=== PATIENT | female | born 1955 | race Caucasian/White ===

== ENCOUNTER → 2021-08-08 | Outpatient (CLI) | payer OTHER, SELFPAY ==
--- NOTE | 2021-08-08 12:41 | MRI_ITS ---
STUDY: MRI BRAIN WITH AND WITHOUT CONTRAST (ATTENTION INTERNAL AUDITORY CANALS - I.A.C.''s) REASON FOR EXAM: Female, 65 years old. RIGHT TINNITUS; RIGHT ASYMMETRIC HEARING LOSS TECHNIQUE: Standardized multiplanar fat and water weighted pulse sequences were obtained. 13ML IV DOTAREM was administered for the contrast portion of the examination. COMPARISON: None. FINDINGS: Normal bilateral temporal bones. Normal bilateral internal auditory canals. There is no demonstrated intracanalicular or cisternal vestibular schwannoma (acoustic neuroma). There is no enhancement of the bilateral VIIth or VIIIth cranial nerves. Normal bilateral cochlea, vestibules and semicircular canals. Normal size of the ventricles and extra-axial spaces for the patient''s age. Extensive confluent areas of T2 prolongation visualized in the periventricular and subcortical white matter more than would be expected for the patient''s age. Normal bilateral basal ganglia. Normal thalami. Normal flow voids within the major intracranial circulation suggesting patency by spin echo criteria. Normal venous enhancement. There is no enhancing intra-axial or extra-axial abnormality. There is no extra-axial fluid accumulation. Normal sella turcica, pituitary gland, infundibular stalk, optic chiasm and hypothalamus. Normal tectal plate and pineal gland. Normal midbrain, michelet and medulla. Normal cerebellum. Normal basal cisterns. No demonstrated orbital abnormality, within the constraints of a routine brain study. Normal visualized paranasal sinuses. Normal calvarium and skull base. Normal visualized soft tissue structures. Normal visualized upper cervical spine. MRI/Brain W/WO Contrast IMPRESSION: Extensive confluent areas of T2 prolongation visualized in the supratentorial white matter, differential diagnosis would include arteriolosclerosis, would recommend clinical correlation. No evidence of temporal bone lesion is seen. Electronically Signed: Mario Michele MD at 16:52 EDT ,
[2021-08-08 13:01] LABS: CREATININE FINGERSTICK 0.6 mg/dL (0.55-1.02); EGFR FINGERSTICK > 60.0000 mL/min (>60)
== END | disposition home or self-care (01) ==
PROVIDERS: PCP Family Medicine; Referring Provider Otolaryngology; Visit Provider Otolaryngology
DX: H93.11 Tinnitus, right ear (principal); H90.3 Sensorineural hearing loss, bilateral
CPT/HCPCS: 70553; A9575

== ENCOUNTER → 2022-04-02 | Outpatient (CLI) | payer OTHER, SELFPAY ==
--- NOTE | 2022-04-02 | FLU_PTH ---
PATIENT: SHASHI MORALES LOC: [facility] U#:[id number] AGE/SX: 66/F ROOM: RE04/02/[address]: Dr. Joe Barbosa MD : 1955 BED: DIS: 04/02/2022 SPEC #: [id number] RECD: 04/02/22 11:53 STATUS: SHAHLA REEdison #: [id number] LORNA: 04/02/22 00:[address]: Joe Barbosa DEPT: CYTOLOGY RECD BY: Reina Mcclain ENTERED: 04/02/22 13:37 SP TYPE: Fluid OTHR DR: Dr. Elise Bautista, DO Tissues: A - Thyroid gland, NOS B - Thyroid gland, NOS C - Thyroid gland, NOS D - Thyroid gland, NOS Procedures: Special Stain Group II Surgery Specimen Level IV Cytospin Fluid Cytology Other HEADER OPERATION: Fine needle aspiration left and right thyroid PRE-OP DIAGNOSIS: Abnormal thyroid ultrasound TISSUE SUBMITTED: A ? FNA right thyroid fluid, B - FNA right thyroid x12 slides, C - FNA left thyroid fluid, D - FNA left thyroid x12 slides DIAGNOSIS CYTOLOGY A. Fine needle aspiration, right thyroid nodule (cytospin and cell block): Macrophages consistent with benign cyst contents. B. Fine needle aspiration, right thyroid nodule (smears): Benign, consistent with benign follicular nodule with cystic change (Marshall Category II). See comment. C. Fine needle aspiration, left thyroid nodule (cytospin and cell block): Negative for malignant cells. See comment. D. Fine needle aspiration, left thyroid nodule (smears): Benign, consistent with benign follicular nodule (Marshall Category II). See comment. AM:yamel 04/03/2022 COMMENT B. The specimen is adequate for evaluation. The Marshall System for thyroid diagnostic categorization was used in the evaluation of this case. C. The specimen primarily contains blood. D. The specimen is adequate for evaluation. The Marshall System for thyroid diagnostic categorization was used in the evaluation of this case. CYTOLOGY STUDY Slides are reviewed. CYTOLOGY GROSS A - Received is 30 ml of dark brown cloudy fluid labeled with the patient's name and and designated per the requisition as right thyroid. Submitted for cytology preparation including cell block. B - Received are 12 smears labeled with the patient's name and designated per the requisition as right thyroid. Submitted for staining. C - Received is 30 ml of brown cloudy fluid labeled with the patient's name and and designated per the requisition as left thyroid. Submitted for cytology preparation including cell block. D - Received are 12 smears labeled with the patient's name and designated per the requisition as left thyroid. Submitted for staining. / yamel 04/02/2022 TC:5 CPT: 68747 x4, 90041 x2
== END | disposition home or self-care (01) ==
LOC: LABSPEC 12:13
PROVIDERS: PCP Family Medicine; Visit Provider Surgery
DX: E04.1 Nontoxic single thyroid nodule (principal)
CPT/HCPCS: 88108; 88161; 88305; 88313

== ENCOUNTER → 2023-02-03 | Outpatient (CLI) | payer MEDICARE, SELFPAY ==
--- NOTE | 2023-02-03 11:25 | RAD_ITS ---
STUDY: X-RAY CHEST REASON FOR EXAM: Female, 67 years old. History lung cancer. Cough. TECHNIQUE: Frontal and lateral views of the chest. COMPARISON: None. FINDINGS: Hyperinflation. Borderline cardiomegaly with aortic tortuosity and calcification. Diffuse mild thoracic spondylosis. No abnormality of the visualized soft tissue structures of the upper abdomen. RAD/Chest PA and Lateral IMPRESSION: Borderline cardiomegaly with hyperinflation. No active or acute cardiopulmonary disease. Electronically Signed: Delonte Chambers MD at 11:39 EDT ,
== END | disposition home or self-care (01) ==
PROVIDERS: PCP Family Medicine; Visit Provider Otolaryngology
DX: R05.9 Cough, unspecified (principal); Z85.118 Personal history of other malignant neoplasm of bronchus and lung
CPT/HCPCS: 71046

== ENCOUNTER → 2023-02-27 | Outpatient (CLI) | payer MEDICARE, SELFPAY ==
--- NOTE | 2023-02-27 12:23 | EKG12_ITS ---
Test Reason : PRE-OP Blood Pressure : / mmHG Vent. Rate : 117 BPM Atrial Rate : 117 BPM P-R Int : 146 ms QRS Dur : 092 ms QT Int : 354 ms P-R-T Axes : 085 069 041 degrees QTc Int : 493 ms Sinus tachycardia Otherwise normal ECG Confirmed by LOCO SAAVEDRA, JEANNE ([id number]), continuity editor KIRAN FORBES ([id number]) on 03/02/2023 8:23:30 AM Referred By: Scott Hunter Confirmed By:CONNIE ADAN MD
[2023-02-27 13:05] LABS: Hematocrit 41.3 % (37-47); Hemoglobin 14.2 g/dL (12.0-15.0); Mean Corp Hgb Conc 34.4 g/dL (32-36); Mean Corpuscular Hgb 29.7 pg (27.0-32.0); Mean Corpuscular Volume 86.4 fL (81-99); Mean Platelet Vol. 9.5 fl (6.2-12.0); Platelet Count 243 K/mm3 (150-450); RBC Distribution Width CV 14.3 % (11.6-14.6); RBC Distribution Width SD 45.7 fl (35.1-43.9); Red Blood Count 4.78 M/mm3 (4.2-5.4); White Blood Count 9.5 K/mm3 (4.4-11.0)
[2023-02-27 13:25] LABS: Anion Gap 5 (5-15); BUN 12 mg/dL (7-18); BUN/Creat Ratio 19.4 RATIO (10-20); Chloride 102 mmol/L (98-107); Creatinine, Serum 0.62 mg/dL (0.55-1.02); EST Glomerular Filtration Rate 102 mL/min (>60); Est Glom Filt Rate - Afr Amer 124 mL/min (>60); Glucose 102 mg/dL (74-106); Potassium 2.9 mmol/L (3.5-5.1); Sodium Level 134 mmol/L (136-145)
== END | disposition home or self-care (01) ==
LOC: PSN 12:21
PROVIDERS: PCP Family Medicine; Referring Provider Otolaryngology; Visit Provider Otolaryngology
DX: Z01.818 Encounter for other preprocedural examination (principal)
CPT/HCPCS: 36415; 80048; 85027; 93005

== ENCOUNTER → 2023-03-02 | Outpatient (CLI) | payer MEDICARE, SELFPAY ==
[2023-03-02 09:13] LABS: Potassium 3.2 mmol/L (3.5-5.1)
== END | disposition home or self-care (01) ==
LOC: LAB 08:52
PROVIDERS: PCP Family Medicine; Referring Provider Otolaryngology; Visit Provider Otolaryngology
DX: Z01.818 Encounter for other preprocedural examination (principal)
CPT/HCPCS: 36415; 84132

== ENCOUNTER → 2023-03-03 | Outpatient (CLI) | payer MEDICARE, SELFPAY ==
--- NOTE | 2023-03-03 | IMM_PTH ---
PATIENT: SHASHI MORALES LOC: [facility] U#:[id number] AGE/SX: 67/F ROOM: RE03/03/[address]: Dr. Scott Hunter MD : 1955 BED: DIS: 03/03/2023 SPEC #: [id number] RECD: 03/05/23 14:51 STATUS: SHAHLA REQ #: [id number] LORNA: 03/03/23 00:[address]: Scott Hunter DEPT: IMMUNOHISTOCHEMISTRY RECD BY: Cherry Casarez ENTERED: 03/05/23 14:53 SP TYPE: IMMUNO OTHR DR: Dr. Elise Bautista, DO Tissues: Supraglottic space Procedures: CK5-6 (add) CK7 (add) CK8 (add) KI-67 (add) P16 (add) P53 (add) Pankeratin (initial) P40 (add) S-100 (add) PHYSICIAN & INSTITUTION [place] [phone] SPECIMEN INFORMATION: Tissue Source: Right supraglottic neoplasm Clinical Info: Malignant neoplasm of supraglottis Specimen Number: [id number] CPT code: 67663, 63130 x8 METHODOLOGY: Deparaffinized sections of prefer/formalin-fixed tissue or PAP/DQ stained slides are incubated with monoclonal/polyclonal antibodies/oligonucleotide probes. Localization is made via biotin free immunoperoxidase method. Appropriate controls are performed and reacted as expected. Results on target cell population are indicated in the following table: RESULTS: ANTIBODY / CLONE RESULT AE1-3 (AE1/AE3/PCK26) positive CK7 (OV-TL12/30) negative CK8 (17xpmzI89) negative S-100 (4C4.9) negative CK5-6 (D5 & 1684) positive P40 (BC28) positive P16 (E6H4) positive, patchy to block-like P53 (DO-7) positive, missense type pattern Ki-67 (30-9) positive, moderate These tests were developed and their performance characteristics determined by [facility]. They may not have been cleared or approved by the U.S. Food and Drug Administration. The FDA has determined that such clearance or approval is not necessary. The above immunohistochemical/dualISH markers are ordered and reviewed by the Pathologist. INTERPRETATION: Right supraglottic lesion, biopsy: Invasive squamous cell carcinoma. AM:yaeml 03/06/2023
--- NOTE | 2023-03-03 | MASS_PTH ---
PATIENT: SHASHI MORALES LOC: [facility] U#:[id number] AGE/SX: 67/F ROOM: RE03/03/[address]: Dr. Scott Hunter MD : 1955 BED: DIS: 03/03/2023 SPEC #: [id number] RECD: 03/04/23 08:23 STATUS: SHAHLA АЛЕКСАНДР #: [id number] LORNA: 03/03/23 00:[address]: Scott Hunter DEPT: SURGICAL PATHOLOGY RECD BY: Candi Hawkins ENTERED: 03/04/23 08:24 SP TYPE: Mass OTHR DR: Dr. 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 See comment. AM:yamel 03/05/2023 COMMENT Sections show extensive squamous cell carcinoma in situ with focal area of invasive poorly differentiated squamous cell carcinoma. Clinical correlation is suggested. Immunohistochemistry ([id number]) supports the above diagnosis. MICROSCOPIC DESCRIPTION Slides are reviewed. GROSS DESCRIPTION Received is one container labeled with the patient's name and not further designated. The specimen consists of two irregular fragments of nelson tissue that in aggregate measure 1.0 x 0.5 x 0.2 cm. The specimen is totally submitted in one cassette. / AM:yamel 03/04/2023 TC:0 CPT: 46188
== END | disposition home or self-care (01) ==
LOC: LABSPEC 15:33
PROVIDERS: PCP Family Medicine; Referring Provider Otolaryngology; Visit Provider Otolaryngology
DX: C32.1 Malignant neoplasm of supraglottis (principal)
CPT/HCPCS: 88305; 88341; 88342

== ENCOUNTER → 2023-03-17 | Outpatient (CLI) | payer MEDICARE, SELFPAY ==
--- NOTE | 2023-03-17 08:00 | PET_ITS ---
EXAMINATION: FDG PET-CT INDICATIONS: A 67-year-old female with a history of head and neck carcinoma presenting for initial staging examination. COMPARISON EXAMINATION: None available. INDEX LESION SIZE SUV INTERPRETATION Hypopharynx and laryngeal structures 28.4 mm 18.0 Fulfills quantitative criteria for viable neoplasm. Left and right lateral neck 6.7 mm largest 3.5 max Fulfills quantitative criteria for viable neoplasm. Bilateral hemithorax pulmonary parenchyma 2.2 max Quantitative criteria for viable neoplasm are not fulfilled. NON-INDEX LESION SIZE SUV INTERPRETATION Pelvic, structural device uterus 5.6 max Correlation with pelvic ultrasound may be of benefit. TECHNIQUE: Following the intravenous administration of 12.49 mCi of F-18 deoxyglucose via the left wrist, multiplanar image acquisitions of the head, neck, chest, abdomen and pelvis to level of mid-thigh, lower extremities obtained at one hour post radiopharmaceutical administration contemporaneously interpreted with the current CT of the head, neck, chest, abdomen and pelvis to level of mid-thigh, lower extremities dated 03/17/23 via coregistration reveal: SERUM GLUCOSE LEVEL: 94 mg/dl. HEIGHT: 63 inches. WEIGHT: 125 lbs. FINDINGS: Head/Neck: Increased radiopharmaceutical concentration is defined in the hypopharynx to the right of midline extending caudal to the laryngeal structures. The calculated maximum standard uptake value is 18.0. The maximum axial diameter of the metabolic, morphologic abnormality is 28.4 mm. Enhanced radiopharmaceutical concentration is defined in the left lateral neck involving level IIA and right lateral neck involving level III. Facilitated FDG uptake is noted in the bilateral-lateral neck involving level IIA on the left and III on the right. The calculated maximum standard uptake value is 3.5. The maximum axial diameter of the largest corresponding soft tissue density is 6.7 mm. The visualized portion of the cerebral cortical-subcortical structures demonstrate symmetric and preserved glucose metabolism. CHEST: Subtle hypermetabolic foci are defined in the bilateral hemithorax generating a calculated maximum standard uptake value of 2.2. Pertinent chest CT findings are as follows. There is atherosclerotic calcification defined in the thoracic aorta without evidence of dilatation-aneurysm formation. Coronary arterial calcification is observed. Scattered bilateral axillary soft tissue densities are nonglucose avid. Calcified and noncalcified mediastinal soft tissue reveals no evidence of increased tracer uptake. Abdomen/Pelvis: Normal physiologic distribution of the radiopharmaceutical is apparent in the hepatic (2.7) and splenic parenchyma, both renal units, bladder and visualized intestinal tract. Diffuse radiopharmaceutical concentration is noted in all four quadrants of the abdomen and pelvis. Abdomen and pelvis CT findings are as follows. The gallbladder is surgically absent. There is atherosclerotic calcification defined in the abdominal aorta without evidence of dilatation-aneurysm formation. Abdominal-pelvic arterial calcification is defined. Facilitated uptake is noted in the lower pelvis associated with the uterus and device placement. The calculated maximum standard uptake value is 5.6. Skeletal: Degenerative changes are noted in the cervical, thoracic and lumbar spine. PET/PET/CT Tumor Base -Thigh Init IMPRESSION: 1. ABNORMAL EXAMINATION INDICATIVE OF MALIGNANT-VIABLE NEOPLASM. 2. Increased radiopharmaceutical concentration defined in the hypopharynx, laryngeal structures fulfills quantitative criteria for viable neoplasm. 3. Enhanced tracer distribution noted in the bilateral-lateral neck fulfills quantitative criteria for malignant transformation. 4. Facilitated radiopharmaceutical manifest in the bilateral hemithorax pulmonary parenchyma do not fulfill quantitative criteria for malignant transformation. (Franchesca et al, Annals of Internal Medicine, 138:724, 2003) 5. Accentuated uptake noted in the lower pelvis associated with the uterus and structural device may be further investigated with pelvic ultrasound secondary to the quantitative degree of uptake. Electronic Signature Francisco Javier Strong D.O. Accurate Quantification of SUVs for this report are calculated using the exclusive [employer], (U.S. Patent No. [id number] [phone] patent [phone] ). Standardization and correction of the FDG SUV metric exclusively available with [employer] intellectual property, allow for vendor non-specific objective quantitative sequential FDG PET-CT comparison and otherwise unobtainable optimization of the sensitivity and specificity of the examination. [email or web address] Electronically Signed: Francisco Javier Strong DO at 23:47 EST ,
== END | disposition home or self-care (01) ==
LOC: ONC 08:20
PROVIDERS: PCP Family Medicine; Referring Provider Otolaryngology; Visit Provider Otolaryngology
DX: C32.1 Malignant neoplasm of supraglottis (principal); Z85.118 Personal history of other malignant neoplasm of bronchus and lung
CPT/HCPCS: 78815; A9552

== ENCOUNTER 2023-05-26 14:37 | Observation (INO) | payer MEDICARE, SELFPAY ==
[2023-05-26] VITALS (9 sets, daily range): BP systolic 118–130; BP diastolic 53–71; PULSE 95–111; RESP 13–23; TEMP 36.6–37; O2SAT 94–97; BMI 20.2; BMI 19.3
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
--- NOTE | 2023-05-26 15:35 | RAD_ITS ---
STUDY: X-RAY CHEST REASON FOR EXAM: Female, 67 years old. Altered mental status TECHNIQUE: Single AP portable view of the chest. COMPARISON: Comparison is made with prior study dated February 03, 2023. FINDINGS: EKG electrodes are seen. Consolidation in the posterior medial segment of the left lower lobe. Elevation of the left hemidiaphragm. Normal size heart. Normal mediastinum and brad. Normal visualized pulmonary arteries. Normal visualized aortic arch and descending thoracic aorta. Normal visualized thoracic spine. Normal visualized ribs, clavicles, and shoulders. There is no demonstrated abnormality of the visualized soft tissue structures of the upper abdomen. RAD/Chest 1 View (Portable) IMPRESSION: Consolidation in the posterior medial segment of the left lower lobe with elevation of the left hemidiaphragm. Electronically Signed: Gideon Greenwood MD at 15:48 EST ,
--- NOTE | 2023-05-26 15:48 | CT_ITS ---
EXAMINATION : Head CT w/out contrast HISTORY : altered mental status COMPARISON : None. TECHNIQUE : Multiple contiguous axial images were obtained from the skull base to the vertex without intravenous contrast. A radiation dose optimization technique was used for this scan. FINDINGS : There is no evidence for acute intracranial hemorrhage, mass effect, or midline shift. There is no extra-axial fluid collection. There are periventricular white matter changes consistent with chronic microvascular ischemic disease. There is sulcal widening and ventricular enlargement consistent with cerebral atrophy. There is normal echeverria-white differentiation, without CT evidence of acute ischemia or infarct. The skull base and calvarium are unremarkable. The orbits are unremarkable. The paranasal sinuses are clear. The mastoid air cells are well-aerated. The soft tissues are unremarkable. CT/Brain/Head without Contrast IMPRESSION: No acute intracranial abnormality. Chronic involutional and ischemic changes of the brain. Electronically Signed: Alexandru Blood MD at 16:20 EST ,
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
--- NOTE | 2023-05-26 15:55 | EX.ED.DYSGE1 ---
HPI History of Present Illness Chief Complaint: Confusion Onset/Context/Timing Maximum Severity: 09/27 Narrative Narrative: 67-year-old female presenting with her for confusion/altered mental status which began today at about 1130. Patient's states that she was recently admitted about a week and 1/2 to 2 weeks ago at [facility]. states that she is on OxyContin given to her for stage III esophageal cancer and initially this was every 6 hours but had been increased to every 3 hour as needed for pain. Patient had altered mental status was believed to be due to excessive OxyContin. Patient was admitted for observation. She was diagnosed with influenza. Patient subsequently recovered and was discharged home. About 9 days ago her states. When she was home she had been started on Tylenol at home. Was given something different in the hospital to help control her pain. He states that she had gone up until yesterday without any OxyContin but after starting to take it again she is now confused and altered. He denies any trauma. She has not had any fevers, chills. Patient is alert but is oriented to 0. She cannot tell me the day, month, year. She does not know her 's name. She does not know where she is. states she was last given OxyContin some point today but she cannot recall when this was a neither can he. Apparently while they were at their visit today at oncology (Dr. Zambrano's office) there was some concern that the was not keeping up with her needs of care. There was also a call apparently to Adult Protective Services. Social work had already seen the patient when I was in the room. Apparently there is concern that the patient should not go home as it is unsafe for her. [facility] Medical History (Updated 05/26/23 @ 18:[address] Nuris Torres MD) Cancer of supraglottis Chronic hypoxemic respiratory failure Congestive heart failure COPD (chronic obstructive pulmonary disease) with acute bronchitis Hypokalemia Metastasis to cervical lymph node Oropharyngeal dysphagia Severe protein-calorie malnutrition Small cell lung cancer Tobacco abuse Home Medications morphine concentrate 100 mg/5 mL (20 mg/mL) oral solution 10 mg feeding tube Q3H PRN pain 05/26/23 [History Last Taken 05/24/23] ondansetron HCl 8 mg tablet 8 mg feeding tube Q8H PRN nausea and vomiting 05/26/23 [History Last Taken 05/26/23] oxycodone 5 mg tablet 10 mg PO Q6H PRN pain 05/26/23 [History Last Taken 05/26/23] potassium chloride 20 mEq oral packet (Klor-Con) 20 meq feeding tube DAILY 05/26/23 [History Last Taken 05/25/23] Surgical History Hx of cholecystectomy Social History Smoking Status: Current some day smoker tobacco type: cigarettes ROS ROS ED Review of Systems ROS Unobtainable: due to mental condition and due to mental status Integumentary Reports rash EXAM Physical Exam Const Vital Signs: 05/26/23 14:41 05/26/23 15:10 05/26/23 16:00 Temperature 97.9 F Temperature Source Temporal Pulse Rate 111 H 103 H 99 Respiratory Rate 20 H 23 H 23 H Blood Pressure 122/70 H 118/53 L 120/67 Blood Pressure Mean 87 74 84 Pulse Ox 97 97 97 Oxygen Delivery Method Room Air Nasal Cannula Nasal Cannula Oxygen Flow Rate (L/min) 3 3 05/26/23 17:00 05/26/23 18:00 Temperature Temperature Source Pulse Rate 97 98 Respiratory Rate 14 13 Blood Pressure 123/70 H 128/62 H Blood Pressure Mean 87 84 Pulse Ox 96 97 Oxygen Delivery Method Nasal Cannula Nasal Cannula Oxygen Flow Rate (L/min) 3 3 Positive well nourished General Appearance ED: NAD; Negative for pallor HEENT Reports moist mucous membranes Eyes PERRL and EOMs intact bilaterally Resp normal respiratory effort Auscultation: Negative for rales, rhonchi or wheezes Cardio regular rhythm Rate: tachycardic GI normal to inspection, nondistended, normoactive bowel sounds Neuro CN's II-XII intact bilaterally Sensorium / Orientation: alert and orientation impaired Motor Exam: general weakness Psych Psych Narrative: Confused Skin no rashes or lesions noted and no wounds General Skin Exam: Negative for jaundice or pallor MDM MDM MDM Narrative Medical decision making narrative: Patient presenting with altered mental status. Is unclear etiology. seems to believe this is due to OxyContin. Differential includes polypharmacy, dehydration, anemia, UTI, pneumonia, COVID. CBC was obtained to assess white blood cell count, hemoglobin, platelets. CMP to assess liver function, renal function, electrolytes, glucose. Ammonia level to assess for hyperammonemia. EtOH and urine drug screen were obtained to assess for intoxication or drug abuse. Urinalysis to assess for UTI. Ultimately patient's workup is unremarkable exception of a positive drug screen for opioids which she is prescribed. CT brain was negative. Chest x-ray per the radiologist shows consolidation left lower lobe however the patient has known history of metastatic cancer. Patient not hypoxic, febrile, no leukocytosis slight low suspicion for acute infiltrate on my interpretation of the chest x-ray. Vital signs are stable and she is afebrile. She still confused so we discussed with hospitalist for admission. Impression: 1. Altered mental status 2. Debility Lab Data Attestation: I reviewed the patient's lab results. Labs: Laboratory Results - last 24 hr 05/26/23 05/26/23 15:45 16:36 WBC 10.8 RBC 3.96 L Hgb 10.8 L Hct 33.9 L MCV 85.6 MCH 27.3 MCHC 31.9 L RDW Std Deviation 44.7 H RDW Coeff of Devin 14.4 Plt Count 367 MPV 10.3 Immature Gran % (Auto) 0.600 Neut % (Auto) 88.3 H Lymph % (Auto) 5.4 L [place] % (Auto) 5.4 Eos % (Auto) 0.1 Baso % (Auto) 0.2 Absolute Neuts (auto) 9.6 H Absolute Lymphs (auto) 0.58 L Nucleated RBC % 0 Differential Comment SEE COMMENT Platelet Estimate ADEQUATE RBC Morphology NORM C+C Anisocytosis RARE Sodium 133 L Potassium 4.6 Chloride 100 Carbon Dioxide 29.0 Anion Gap 4 L BUN 15 Creatinine 0.35 L Estim Creat Clear Calc 56.71 Est GFR (MDRD) Af Amer 240 Est GFR (MDRD) Non-Af 198 BUN/Creatinine Ratio 43.0 H Glucose 104 Calcium 9.3 Total Bilirubin 0.20 Direct Bilirubin 0.11 AST 28 ALT 41 Alkaline Phosphatase 90 Ammonia < 10.0 L Total Protein 8.1 Albumin 3.1 L Globulin 5.0 H Urine Color Yellow Urine Clarity Clear Urine pH 5.0 Ur Specific [place] 1.015 Urine Protein 30 H Urine Glucose (UA) Normal Urine Ketones Negative Urine Occult Blood Negative Urine Nitrite Negative Urine Bilirubin Negative Urine Urobilinogen Normal Ur Leukocyte Esterase Negative Urine RBC 0 SEEN Urine WBC 0 SEEN Ur Squamous Epith Cells 0-5 SEEN Urine Bacteria 0 SEEN Urine Mucus 0 SEEN Urine Opiates Screen POSITIVE H Urine Methadone Screen NEGATIVE Ur Barbiturates Screen NEGATIVE Ur Phencyclidine Scrn NEGATIVE Ur Amphetamines Screen NEGATIVE MDMA (Ecstasy) Screen NEGATIVE U Benzodiazepines Scrn NEGATIVE Urine Cocaine Screen NEGATIVE U Cannabinoids Screen NEGATIVE Ur Drug Screen Comment Ethyl Alcohol < 3.0 Radiography Diagnostic Testing: Clinical Impression(s) from Imaging Studies Chest X-Ray 05/26/23 15:35 IMPRESSION: Consolidation in the posterior medial segment of the left lower lobe with elevation of the left hemidiaphragm. Electronically Signed: Gideon Greenwood MD at 15:48 EST , Brain CT 05/26/23 15:48 IMPRESSION: No acute intracranial abnormality. Chronic involutional and ischemic changes of the brain. Electronically Signed: Alexandru Blood MD at 16:20 EST , Discharge Plan Triage Chief Complaint: Confusion Other Complaint: Abd Pain ED Provider: Frank Tubbs Dx/Rx/DC Orders Primary Care Provider: Elise Bautista
[2023-05-26 16:08] LABS: Absolute Lymphocyte Count 0.58 X10^3/uL (0.83-4.51); Absolute Neutrophil Count 9.6 X10^3/uL (2.0-7.7); Basophil# 0.02 X10^3/uL; Basophil% 0.2 % (0-1); Eosinophil# 0.01 X10^3/uL; Eosinophils% 0.1 % (0-5); Hematocrit 33.9 % (37-47); Hemoglobin 10.8 g/dL (12.0-15.0); Lymphocyte # 0.58 X10^3/ul (0.83-4.51); Lymphocyte % 5.4 % (19-41); Mean Corp Hgb Conc 31.9 g/dL (32-36); Mean Corpuscular Hgb 27.3 pg (27.0-32.0); Mean Corpuscular Volume 85.6 fL (81-99); Mean Platelet Vol. 10.3 fl (6.2-12.0); Monocyte# 0.59 X10^3/uL; Monocyte% 5.4 % (0-10); NRBC Flagged by Analyzer 0 % (0-5); Neutrophil # 9.58 X10^3/uL (2.7-7.7); Neutrophil % 88.3 % (47-70); POSITIVE DIFFERENTIAL YES; Platelet Count 367 K/mm3 (150-450); RBC Distribution Width CV 14.4 % (11.6-14.6); RBC Distribution Width SD 44.7 fl (35.1-43.9); Red Blood Count 3.96 M/mm3 (4.2-5.4); White Blood Count 10.8 K/mm3 (4.4-11.0)
[2023-05-26 16:10] LABS: Differential Indicated SCAN CRITERIA MET
[2023-05-26 16:23] LABS: AST(SGOT) 28 U/L (15-37); Alanine Aminotransfer ALT/SGPT 41 U/L (13-56); Albumin, Serum 3.1 g/dL (3.2-5.0); Alkaline Phosphatase 90 U/L (45-117); Anion Gap 4 (5-15); BUN 15 mg/dL (7-18); Bilirubin, Direct 0.11 mg/dL (0.00-0.30); Calcium,Total 9.3 mg/dL (8.5-10.1); Chloride 100 mmol/L (98-107); Creatinine, Serum 0.35 mg/dL (0.55-1.02); EST Glomerular Filtration Rate 198 mL/min (>60); Est Glom Filt Rate - Afr Amer 240 mL/min (>60); Estimated Creatinine Clearance 56.71 ml/min; Glucose 104 mg/dL (74-106); Potassium 4.6 mmol/L (3.5-5.1); Protein, Total 8.1 g/dL (6.4-8.2); Sodium Level 133 mmol/L (136-145)
[2023-05-26 16:40] LABS: Ammonia < 10.0 umol/L (11-32)
[2023-05-26 16:42] LABS: Anisocytosis RARE; Platelet Estimate ADEQUATE (ADEQ); Red Cell Morphology NORM C+C NORMAL (NORM C&C)
[2023-05-26 16:43] LABS: Alcohol, Blood (Medical)-Serum < 3.0 mg/dL
[2023-05-26 16:47] LABS: Bacteria 0 SEEN /hpf (None Seen); Mucous, Urine 0 SEEN /hpf (<or=2+); Red Blood Cells-Urine 0 SEEN /hpf (0-5); White Blood Cells 0 SEEN /hpf (0-5)
[2023-05-26 16:53] LABS: Color, Urine Yellow (Yellow); Glucose, Dipstick Normal (Normal); Ketone-Dipstick Negative (Negative); Leukocyte Esterase-Dipstick Negative /ul (Negative); Nitrite-Dipstick Negative (Negative); Occult Blood-Urine Negative /ul (Negative); Protein-Dipstick 30 mg/dl (Negative); Specific Gravity, Urine 1.015 (1.002-1.030); Urine Bilirubin Dipstick Negative (Negative); Urine Clarity Clear (Clear); Urine Urobilinogen Normal (Normal)
[2023-05-26 17:04] LABS: Amphetamine Urine VISTA NEGATIVE (<1000 ng/mL); Barbiturate Urine VISTA NEGATIVE (< 200 ng/mL); Benzodiazepine Urine VISTA NEGATIVE (< 200 ng/mL); Cocaine Urine VISTA NEGATIVE (< 300 ng/mL); Ecstacy Urine VISTA NEGATIVE (< 500 ng/mL); Methadone Urine VISTA NEGATIVE (< 300 ng/mL); PCP Urine VISTA NEGATIVE (< 25 ng/mL); THC Urine VISTA NEGATIVE (< 50 ng/mL); Vista UDS pH Range 5
[2023-05-26 17:23] LABS: Squamous Epithelial Cells - UA 0-5 SEEN /hpf (5-10)
--- NOTE | 2023-05-26 17:58 | ED.RN ---
YEASTY RASH NOTED PERINEAL AREA WHEN THIS NURSE COLLECTED URINE VIA STRAIGHT CATH.
--- NOTE | 2023-05-26 18:01 | ED.RN ---
PATIENT CONTINUES TO NOT ANSWER QUESTIONS, BUT WOULD CONTINUE TO FOLLOW COMMANDS.
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
--- NOTE | 2023-05-26 19:00 | RAD_ITS ---
STUDY: X-RAY - ABDOMEN/PELVIS REASON FOR EXAM: Female, 67 years old. feeding tube, abd bloating and discomfort TECHNIQUE: Single AP view of the abdomen / pelvis. COMPARISON: None. FINDINGS: Normal visualized lung bases. Feeding tube appears to be in satisfactory position for location within the stomach. There is an unremarkable bowel gas pattern. There is no demonstrated free abdominal air. The visualized liver, spleen and kidneys are grossly normal in size and morphology. Normal soft tissue structures. Normal visualized osseous structures. RAD/Abdomen Single View (Portable) IMPRESSION: No definite acute or significant abnormality seen. Electronically Signed: Ilya James MD at 20:47 EST ,
[2023-05-26] MEDS: 0.9% Normal Saline (1000mL) 1,000 ML 50 ML IV (20:33)
[2023-05-26] MEDS: Ondansetron 4 MG/2 ML Vial IV (21:40)
[2023-05-27] VITALS (9 sets, daily range): BP systolic 118–136; BP diastolic 57–71; PULSE 76–100; RESP 16–20; TEMP 36.6–37; O2SAT 87–100
[2023-05-27] MEDS: Nystatin Ointment 1 APPLIC TOPICAL ×2 (00:50→10:44)
[2023-05-27] MEDS: Jevity 1.5 1,000 ML 50 ML GT (00:50)
[2023-05-27] MEDS: Ipratropium/Albuterol Sulfate 3 ML AMPUL.NEB INHALATION ×2 (07:10→13:20)
[2023-05-27] MEDS: Budesonide Respules 0.5 MG/2 ML AMPUL.NEB. INHALATION (07:10)
--- NOTE | 2023-05-27 08:43 | WOUNDNOTE ---
wound photo: sacrum
[2023-05-27 08:54] LABS: Absolute Lymphocyte Count 0.58 X10^3/uL (0.83-4.51); Absolute Neutrophil Count 4.2 X10^3/uL (2.0-7.7); Basophil# 0.03 X10^3/uL; Basophil% 0.6 % (0-1); Eosinophil# 0.03 X10^3/uL; Eosinophils% 0.6 % (0-5); Hematocrit 32.5 % (37-47); Hemoglobin 10.4 g/dL (12.0-15.0); Lymphocyte # 0.58 X10^3/ul (0.83-4.51); Lymphocyte % 10.9 % (19-41); Mean Corpuscular Hgb 27.2 pg (27.0-32.0); Mean Corpuscular Volume 85.1 fL (81-99); Mean Platelet Vol. 9.7 fl (6.2-12.0); Monocyte# 0.48 X10^3/uL; NRBC Flagged by Analyzer 0 % (0-5); Neutrophil % 78.5 % (47-70); POSITIVE DIFFERENTIAL YES; Platelet Count 311 K/mm3 (150-450); RBC Distribution Width CV 14.3 % (11.6-14.6); RBC Distribution Width SD 43.6 fl (35.1-43.9); Red Blood Count 3.82 M/mm3 (4.2-5.4); White Blood Count 5.3 K/mm3 (4.4-11.0)
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
[2023-05-27 10:26] LABS: ALB/GLOB Ratio 0.7 RATIO (0.9-2.4); AST(SGOT) 16 U/L (15-37); Alanine Aminotransfer ALT/SGPT 32 U/L (13-56); Albumin, Serum 2.7 g/dL (3.2-5.0); Alkaline Phosphatase 80 U/L (45-117); Anion Gap 3 (5-15); BUN 14 mg/dL (7-18); BUN/Creat Ratio 32.6 RATIO (10-20); Calcium,Total 8.6 mg/dL (8.5-10.1); Chloride 101 mmol/L (98-107); Creatinine, Serum 0.43 mg/dL (0.55-1.02); EST Glomerular Filtration Rate 156 mL/min (>60); Est Glom Filt Rate - Afr Amer 189 mL/min (>60); Estimated Creatinine Clearance 54.05 ml/min; Globulin 4.1 g/dL (2.2-4.2); Glucose 112 mg/dL (74-106); Protein, Total 6.8 g/dL (6.4-8.2); Sodium Level 131 mmol/L (136-145); Thyroid Stim Hormone (TSH) 0.05 uIU/mL (0.358-3.74)
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
[2023-05-27] MEDS: Enoxaparin 40 MG/0.4 ML Syringe SC (10:44)
[2023-05-27] MEDS: Pantoprazole Sodium 40 MG Tablet PO (10:45)
[2023-05-27] MEDS: Acetaminophen 325 MG Tablet 650 MG PO (10:46)
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
[2023-05-27] MEDS: Pivot 1.5 Cal 1,000 ML 50 ML GT (13:27)
[2023-05-27] MEDS: Lansoprazole 15 MG Capsule.DR GT (13:27)
--- NOTE | 2023-05-27 16:04 | NURSING ---
reviewed student charting
--- NOTE | 2023-05-27 16:09 | CASEMGMT ---
Met with?patient and her son to complete YAÑEZ form. YAÑEZ form explained to?both who voiced understanding and signed form. Original form placed in pt?s chart and copy provided to?patient. Samantha Magallanes, Discharge Planning Asst
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
--- NOTE | 2023-05-27 16:44 | CASEMGMT ---
TARIK SALINAS updated by WERNER that patient will need oxygen at discharge and family prefers [employer]. Script received and sent to [facility] via [employer]. Portable tank provided from [facility] floor stock.
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
--- NOTE | 2023-05-27 17:29 | NURSING ---
at bedside, trying to make sign living will paperwork-pt initially told him she did not want to sign the documentation-pt was looking down, closing eyes, and had expressed earlier that she wanted to go home to her sons' home and not with [facility] says to this nurse do you have a ? answers his own question saying no, you don t have a i asked pt if she would like this nurse to remain in her room and she states yes
--- NOTE | 2023-05-27 18:50 | NURSING ---
update given to Karen over phone about when tube feeding is due and next dose due on meds, oxygen
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
== END 2023-05-27 18:37 | disposition home or self-care (01) ==
LOC: ED 18:40 → MS3 19:11
PROVIDERS: Admitting Provider Internal Medicine; Emergency Provider Student in an Organized Health Care Education/Training Program; PCP Family Medicine; Visit Provider Internal Medicine
DX: G92.9 Unspecified toxic encephalopathy (principal); C77.0 Secondary and unspecified malignant neoplasm of lymph nodes of head, face and neck; L89.153 Pressure ulcer of sacral region, stage 3; E43 Unspecified severe protein-calorie malnutrition; J44.9 Chronic obstructive pulmonary disease, unspecified; I50.9 Heart failure, unspecified; C32.1 Malignant neoplasm of supraglottis; R53.81 Other malaise; F17.210 Nicotine dependence, cigarettes, uncomplicated; E87.1 Hypo-osmolality and hyponatremia; Z79.899 Other long term (current) drug therapy; B37.31 Acute candidiasis of vulva and vagina; T85.898A Other specified complication of other internal prosthetic devices, implants and grafts, initial encounter; R19.7 Diarrhea, unspecified; Z92.21 Personal history of antineoplastic chemotherapy; Z92.3 Personal history of irradiation; D63.8 Anemia in other chronic diseases classified elsewhere; Z68.20 Body mass index [BMI] 20.0-20.9, adult
CPT/HCPCS: 36415; 70450; 71045; 74018; 80048; 80053; 80076; 80307; 80320; 81001; 82140; 84443; 85025; 87631; 94640; 96372; 96374; 97162; 97802; 99221; 99284; J7030; A4216; G0378; G0480; J2405